=== PATIENT | female | born 1930 | race Caucasian/White ===

== ENCOUNTER 2016-08-09 19:22 | Inpatient (IN) | payer MEDICARE, BC ==
[~2016-08-09] VITALS: Ht 161.3 cm; Wt 93.6 kg
[2016-08-09 19:49] LABS: BASOPHILS 0.2 % (0.0-2.0); EOSINOPHILS 3.3 % (0-7); HEMATOCRIT 39.5 % (36.0-48.0); HEMOGLOBIN 12.3 g/dL (12-16); IMMATURE GRANULOCYTES 0.4 % (0-5); LYMPHOCYTES 10.3 % (15-50); MCH 25.3 pg (26.0-34.0); MCHC 31.1 g/dL (31.0-37.0); MCV 81.1 fL (80.0-100.0); MEAN PLATELET VOLUME 10.1 fL (7.4-10.4); MONOCYTES 10.1 % (2-11); NEUTROPHILS 75.7 % (40-80); PLATELET COUNT 258 10x3/uL (130-400); RBC 4.87 10x6/uL (4.00-5.40); RDW 17.2 % (11.5-14.5); WBC 9.9 10x3/uL (4.8-10.8)
[2016-08-09 20:35] LABS: ALBUMIN 3.6 g/dL (3.4-5.0); ALKALINE PHOSPHATASE 100 U/L (46-116); ALT (SGPT) 17 U/L (10-68); AMYLASE - SERUM 32 U/L (25-115); CALC OSMOLALITY 274 mosm/kg (275-300); CALCIUM 9.3 mg/dL (8.5-10.1); CARBON DIOXIDE 28.1 mmol/L (21.0-32.0); CHLORIDE - SERUM 100 mmol/L (98-107); CREATININE - SERUM 0.9 mg/dL (0.6-1.3); GLUCOSE 131 mg/dL (74-106); LIPASE 99 U/L (73-393); POTASSIUM - SERUM 4.5 mmol/L (3.5-5.1); PRO BNP 626 pg/mL (0-450); PROTEIN - SERUM 7.1 g/dL (6.4-8.2); SODIUM 136 mmol/L (136-145); TROPONIN-I < 0.017 ng/mL (0.000-0.060); UREA NITROGEN 14 mg/dL (7-18); eGFR NON AFRICAN AMERICAN 63 mL/min (90-120)
--- NOTE | 2016-08-09 22:35 | NUR ---
REC'D PT FROM ER VIA W/C. PT'S SON PRESENT. PT A/O. TRANSFERED FROM W/C TO BED WITHOUT ASSIST. STAFF ASSITED PT TO BATHROOM. PT'S GAIT STEADY. PT DID SAY SHE USES A WALKER AT HOME. WEARING O2 AT 2L VIA NC. PT PLACED ON TELEMETRY, AND IS SR AT 81. PT VERY SOB WITH AMBULATING. SLIGHT WHEEZING HEAR THROUGHOUT BILATERALLY. PT HAS IV'S TO BOTH RIGHT AND LEFT AC. THE LEFT AC WAS INFILTRATED, NURSE REMOVED IV WITH TIP INTACT. THE 20G TO PT'S RIGHT AC IS PATENT WITH DRESSING INTACT AND DATED, SWAB CAP PLACED. GENERALIZED NON-PITTING EDEMA NOTED TO BILATERAL LOWER EXTREMITIES. ORIENTED PT TO ROOM. CALL LIGHT WITH IN REACH. HAT PLACED IN TOILET AND PT EDUCATED ON I&O'S. PT GIVEN FRESH WATER. BED ALARM ON. NON-SKID SOCKS PLACED ON PT. ENCOURAGED PT TO CALL FOR ASSISTANCE TO BATHROOM. VS- T-97.5,P-75,R-22,B/P-164/77, O2-97% ON 2L VIA NC. PT REQUEST HER DOOR BE LEFT OPEN. WILL CONT. TO MONITOR.
[2016-08-09] MEDS ORDERED: ALTACE1.25 MG PO (22:49)
[2016-08-09] MEDS ORDERED: CARDIZEM60 MG PO (22:49)
[2016-08-09] MEDS ORDERED: MOBIC7.5 MG PO (22:50)
[2016-08-09] MEDS ORDERED: ATIVAN1 MG PO (22:51)
[2016-08-09] MEDS ORDERED: BAYER CHEWABLE81 MG PO (22:51)
[2016-08-09] MEDS ORDERED: PROVENTIL/2.5 MG/3 M INH (22:52)
[2016-08-09] MEDS ORDERED: SYMBICORT 16010.2 GM INH (22:53)
[2016-08-09] MEDS ORDERED: COMBIVENT RESPIM4 GM INH (22:53)
[2016-08-09] MEDS ORDERED: MIRALAX17 GM PO (22:54)
[2016-08-10 00:35] VITALS: BP 164/77; BMI 36.1
--- NOTE | 2016-08-10 02:58 | NUR ---
PT C/O BEING HUNGERY. NURSE OFFERED PT A SNACK. PT REQUESTED SOME MILK ONLY. DENIES OTHER NEEDS AT THIS TIME. RESP UNLABORED. CALL LIGHT WITH IN REACH. NURSE REMINDED PT TO ELEVATE HOB WHILE DRINKING MILK. PT REFUSES TO TURN OFF BATHROOM LIGHT OR LIGHT ABOVE THE SINK, ALSO, PT REFUSES TO CLOSE HER DOOR. PT CALL LIGHT WITH IN REACH. WILL CONT. TO MONITOR.
--- NOTE | 2016-08-10 05:13 | NUR ---
PT CALLED NURSE INTO ROOM AND REQUESTED AN UPDRAFT. NURSE EXPLAINED THE UPDRAFTS WERE ORDER EVERY 6 HOURS. PT STATES SHE TAKES THEM Q4H AT HOME. PT IS LAYING IN BED WIT HOB SLIGHTLY ELEVATED. RESP ARE UNLABORED. O2 AT 2L VIA NC. PT DOES NOT APPEAR TO BE IN ANY DISTRESS. ABLE TO HAVE LONG WINDED CONVERSATION WITH OUT PAUSE. PT DENIES OTHER NEEDS AT THIS TIME. WILL CONT. TO MONITOR.
[2016-08-10 06:28] VITALS: BP 141/84
--- NOTE | 2016-08-10 08:00 | NUR ---
PATIENT SITTING ON SIDE OF THE BED. ALERT AND ORIENTED. DENIES PAIN. SALINE LOCK INTACT TO RIGHT AC. O2 AT 2L/NC IN USE. EXP WHEEZES NOTED. RELATING SHE WANTS TO GO HOME THAT IT IS SUPPOSE TO BE STORMY TOMORROW AND RELATING THE DOCTOR TOLD HER SHE COULD IF SHE WANTED TO. CALL LIGHT WITHIN REACH AND BED IN LOW POSITION.
[2016-08-10 08:17] VITALS: BP 152/77
[2016-08-10 09:50] LABS: CKMB 3.5 U/L (0.0-3.6); CREATINE KINASE 100 UL (21-215); TROPONIN-I 0.017 ng/mL (0.000-0.060)
--- NOTE | 2016-08-10 09:54 | NUR ---
MEDS ADMINISTERED PER ORDERS WITHOUT DIFFICULTY. STILL TALKING TO NURSE REGARDING GOING HOME.
[2016-08-10 11:01] VITALS: Ht 161.3 cm; Wt 93.6 kg
[2016-08-10 11:50] VITALS: BP 106/63
--- NOTE | 2016-08-10 12:48 | NUR ---
MEDS ADMINISTERED PER ORDERS.
--- NOTE | 2016-08-10 13:15 | NUR ---
SPOKE WITH DR WILSON'S OFFICE REGARDING PATIENT REQUEST TO GO HOME. RELATES HE HAD RATHER SHE STAYS THE NIGHT. INFORMED PATIENT OF WHAT DOCTOR SAID AND SHE ACKNOWLEDGED UNDERSTANDING AND WAS AGREEABLE WITH DOCTOR,
[2016-08-10 14:28] LABS: CKMB 4.1 U/L (0.0-3.6); CREATINE KINASE 124 UL (21-215); TROPONIN-I 0.019 ng/mL (0.000-0.060)
[2016-08-10 16:11] VITALS: BP 98/59
--- NOTE | 2016-08-10 18:45 | NUR ---
MEDS ADMINISTERED WITHOUT DIFFICULTY PER ORDERS.
[2016-08-10 20:00] VITALS: BP 115/70
[2016-08-10 20:27] LABS: CKMB 5.7 U/L (0.0-3.6); CREATINE KINASE 167 UL (21-215)
[2016-08-10 20:28] LABS: TROPONIN-I < 0.017 ng/mL (0.000-0.060)
--- NOTE | 2016-08-10 20:30 | NUR ---
REPORT RECEIVED AND CARE ASSUMED. LYING IN BED RESTING QUIETLY WITH EYES CLOSED. SEE ASSESSMENT FLOW SHEET FOR FURTHER DETAILS. BED IN LOW POSITION AND CALL LIGHT IN EASY REACH. WILL CONTINUE TO MONITOR.
[2016-08-11] VITALS: BP 138/66
--- NOTE | 2016-08-11 00:59 | NUR ---
C/O HEADACHE AND LEFT EAR PAIN AT LEVEL#6. TYLENOL 650 MG PO GIVEN.
[2016-08-11 04:00] VITALS: BP 138/88
[2016-08-11 04:47] LABS: BASOPHILS 0 % (0.0-2.0); EOSINOPHILS 0 % (0-7); HEMOGLOBIN 12.3 g/dL (12-16); IMMATURE GRANULOCYTES 0.6 % (0-5); LYMPHOCYTES 11.1 % (15-50); MCH 25.6 pg (26.0-34.0); MCHC 32.4 g/dL (31.0-37.0); MCV 79.2 fL (80.0-100.0); MEAN PLATELET VOLUME 10.7 fL (7.4-10.4); MONOCYTES 6.8 % (2-11); NEUTROPHILS 81.5 % (40-80); PLATELET COUNT 274 10x3/uL (130-400); WBC 8.7 10x3/uL (4.8-10.8)
[2016-08-11 05:09] LABS: ALBUMIN 3.3 g/dL (3.4-5.0); ANION GAP 11.5 mmol/L (8-16); BILIRUBIN - TOTAL 0.56 mg/dL (0.2-1.3); CALCIUM 9.1 mg/dL (8.5-10.1); CARBON DIOXIDE 28.9 mmol/L (21.0-32.0); CREATININE - SERUM 0.9 mg/dL (0.6-1.3); POTASSIUM - SERUM 4.4 mmol/L (3.5-5.1); PROTEIN - SERUM 6.8 g/dL (6.4-8.2)
--- NOTE | 2016-08-11 07:57 | NUR ---
0741-SITTING ON SIDE OF BED WITH AM ROUNDING, REPORTS THAT SHE IS GOING HOME TODAY. ON HEART MONITOR SHOWING ST WITH OCC. PAC, HR 117. ON 2L PER NC. RIGHT AC SEEN WITH SALINE LOCK. WILL CONTINUE TO MONITOR. 0743-DR HUYNH HERE TO SEE PATIENT.
[2016-08-11 08:04] VITALS: BP 142/77
[2016-08-11 13:01] VITALS: BP 120/62
--- NOTE | 2016-08-11 13:11 | NUR ---
SITTING IN CHAIR, DENIES NEEDS AT PRESENT TIME. PATIENT IS STILL AWAITING DISCHARGE. WILL CONTINUE TO MONITOR
--- NOTE | 2016-08-11 14:11 | NUR ---
1345-AT REST ON 2L PER NC 02 SAT IS 93% 1405-ON ROOM AIR, I WALKED HER 30 FEET AND O2 SAT DROPPED TO 86% 1407-PLACED BACK ON 2L PER NC AND 02 SAT IS BACK TO 93% WITH ENCOURGEMENT OF DEEP BREATHS
--- NOTE | 2016-08-11 14:56 | NUR ---
Patient Name: OMAR GLASS Admission Status: ER Accout number: [id number] Admission Date: 08-09-2016 : 1930 Admission Diagnosis:OTHER CHEST PAIN Attending: JESUS Current LOS: 2 Anticipated DC Date: 08-11-2016 Planned Disposition: Home Health Service Primary Insurance: MEDICARE A & B Discharge Planning Comments: * Is the patient Alert and Oriented? Yes 0 * How many steps to enter\exit or inside your home? 1 O/ 3 I 0 * PCP DR. FREDERICK CHAMPION 0 * Pharmacy [facility] [place] 0 * Preadmission Environment Home Alone 0 * ADLs Independent 0 * Equipment Cane Nebulizer Oxygen Walker 0 * Other Equipment [facility] - MEDICAL EQUIPMENT PROVIDER 0 * List name and contact numbers for known caregivers / representatives who currently or will assist patient after discharge: AGNES GLASS, SON, 0 * Community resources currently utilized None 0 * Please name any agencies selected above. NONE 0 * Additional services required to return to the preadmission environment? No 0 * Can the patient safely return to the preadmission environment? Yes 0 * Has this patient been hospitalized within the prior 30 days at any hospital? No 0 CM MET WITH PT IN ROOM TO DISCUSS DISCHARGE PLANNING AND NEEDS. PT REPORTS LIVING AT HOME INDEPENDENTLY AND ALONE. PT HAS HOME OXYGEN, NEBULILZER, CANE AND WALKER FROM [facility]. PT HAS PORTABLE OXYGEN IN THE PAST BUT GAVE IT BACK TO THEM AND THINKS SHE NEEDS IT NOW. PT HAS NO OUTSIDE SERVICES ASSISTING IN THE HOME. CM DISCUSSED AVAILABILITY OF HOME HEALTH, REHAB SERVICES AND MEDICAL EQUIPMENT. PT WOULD LIKE HOME HEALTH WITH [facility] ([facility] REPORTS HER SON WILL PICK HER UP FOR DISCHARGE HOME. IMPORTANT MESSAGE FROM MEDICARE PROVIDED AND EXPLAINED. CM CALLED [facility], , SPOKE TO KORY WHO REPORTED THEY WILL ACCEPT BUT WILL HAVE TO WAIT FOR DR. FREDERICK CHAMPION TO AUTHORIZE IT, IT COULD BE SUNDAY NEXT WEEK. CM FAXED REFERRAL TO [facility] AT [phone]. CM CALLED [facility], , SPOKE TO RAYA WHO VERIFIED PT IS ACTIVE WITH HOME OXYGEN ONLY AND WILL NEED QUALIFIED FOR PORTABLE OXYGEN WITH A SIGNED ORDER BEFORE THEY CAN BRING THE OXYGEN OVER. CM NOTIFIED BEDSIDE NURSE WHO TESTED OXYGEN LEVEL, PT QUALIFIED FOR PORTABLE. CM WAITING ON WRITTEN ORDER FROM FOR PORTABLE OXYGEN TO COMPLETE ARRANGEMENTS. MOODY SPOKE TO JONO AT [facility], SHE WILL RECEIVE ORDER, FAX ORDER TO [facility] FOR SIGNATURE AND ARRANGE DELIVERY OF PORTABLE OXYGEN TO PT'S ROOM FOR DISCHARGE. Electric Organ Assembler And Checker: Anoop Woodall
[2016-08-11] MEDS ORDERED: LEVAQUIN750 MG PO (15:36)
[2016-08-11] MEDS ORDERED: MEDROL DOSE PACK4 MG PO (15:37)
[2016-08-11 16:32] VITALS: BP 109/68
--- NOTE | 2016-08-11 17:41 | NUR ---
PT DISCHARED HOME VIA WHEELCHAIR ON PORTABLE O2 VIA NC. IV D/C WITH CATH TIP INTACT. PT TOLERATED WELL. VERBAL AND WRITTEN D/C INSTRUCTION GIVEN TO PATIENT.
--- NOTE | 2016-08-18 14:54 | EC ---
PATIENT:OMAR GLASS DATE OF SERVICE: 08/09/16 SEX: F MEDICAL RECORD: [id number] DATE OF : 30 LOCATION:D. D.211 AGE OF PATIENT: 86 ADMISSION DATE: 08/09/16 REFERRING PHYSICIAN: INTERPRETING PHYSICIAN: AARON PEARCE M.D. ECHOCARDIOGRAM REPORT ECHO CHARGES 4 ECHO COMPLETE CLINICAL DIAGNOSIS: SOB ECHOCARDIOGRAPHIC MEASUREMENTS (adult normal given) AC root (d.<3.7cm) 3.3 LV Septum d (<1.2 cm> 1.6 Valve Excursion 1.6 LV Septum (systole) 1.8 Left Atria (s.<4.0cm> 4.8 LVPW d(<1.2cm) 1.6 RV (d.<2.3cm) 3.9 LVPW (sytole) 1.8 LV diastole(<5.6CM) 5.3 MV E-F(>70mm/sec) LV systole 3.9 LVOT Diameter 1.5 MV exc.(>10mm) 1.4 Est.ejection fraction (50-75%) Pericardial Effusion N DOPPLER: LVIT A 170 E 129 LA RVSP 49 LVOT 151 AOP1/2T Asc. Ao 184 RVOT 116 RA PA 186 AV Gradient Peak 13.48 AV Mean 6.23 AV Area 1.7 MV Gradient Peak 16.05 MV Mean 6.99 MV Area COMMENTS: Tractor Operator: Alexandra WORKMAN Bellows Charger Assembler:2 Dr. Pearce TAPE# PACS DATE OF SERVICE: 08/10/2016 REFERRING PHYSICIAN: Baudliio Allen DO INDICATION: Dyspnea. DESCRIPTION: Left ventricle demonstrates left ventricular hypertrophy. No wall motion abnormalities are noted. Estimated ejection fraction is 60%. Mitral valve leaflets are thickened. There is mild regurgitation noted. Left atrium is normal in size. The aortic valve is trileaflet. Leaflets are thickened. ECHOCARDIOGRAM REPORT [id number] OMAR GLASS There is no insufficiency seen. Right ventricle is mildly dilated. Tricuspid valve is structurally normal. There is mild regurgitation noted. Right ventricular systolic pressure is elevated at 49 mmHg. There is no pericardial effusion seen. IMPRESSION: 1. Left ventricular hypertrophy with preserved ejection fraction of 60%. 2. Mild mitral regurgitation. 3. Aortic valve sclerosis without stenosis. 4. Mild tricuspid regurgitation with elevated pulmonary pressures. TRANSINT:[id number] Voice Confirmation ID: [id number] DOCUMENT ID: [id number] AARON PEARCE M.D. at 1454 CC: [id number] DICTATION DATE: 08/11/16 1320 ACADEMIC AFFAIRS SPECIALIST: 08/11/16 1528 DIS IN 08/11/16 [place] [id number] [place] [id number]
== END 2016-08-11 17:43 | disposition home health service (06) | DRG 192 ==
LOC: D.ER 19:22 → D.M2 22:44
PROVIDERS: Family Medicine; ADMIT Family Medicine
DX: J44.1 Chronic obstructive pulmonary disease with (acute) exacerbation (principal); I10 Essential (primary) hypertension; Z87.891 Personal history of nicotine dependence